=== PATIENT | female | born 1975 | race Caucasian/White ===

== ENCOUNTER 2019-06-17 13:27 | Emergency (ER) | payer BC ==
[2019-06-17 13:40] VITALS: BP 155/85
--- NOTE | 2019-06-17 13:57 | UC ---
General HPI - HPI Summary HPI Summary: patient has run out of medications to treat adhd----has appointment at [facility] to get meds filled - History of Current Complaint Chief Complaint: UCMedRefill Stated Complaint: MED REFILL Time Seen by Provider: 06/17/19 13:29 Hx Obtained From: Patient Hx Last Menstrual Period: 2 weeks ago Onset/Duration: Gradual Onset Timing: Constant Pain Intensity: 0 - Allergy/Home Medications Allergies/Adverse Reactions: Allergies Allergy/AdvReac Type Severity Reaction Status Date / Time No Known Allergies Allergy Verified 06/17/19 13:40 Home Medications: Home Medications Bupropion XL* [Wellbutrin XL *] 300 mg PO DAILY 06/17/19 [History Confirmed 05/26] Desvenlafaxine(NF) [Pristiq(NF)] 200 mg PO DAILY 06/17/19 [History Confirmed 05/26] Dextroamphetamine/Amphetamine [Adderall 20 mg Tablet] 1 tab PO DAILY MDD 1 06/17 [History Confirmed 06/17/19] Lisdexamfetamine (NF) [Vyvanse (NF)] 70 mg PO DAILY MDD 1 06/17/19 [History Confirmed 06/17/19] Montelukast Sodium TAB* [Singulair 10 MG TAB*] 10 mg PO DAILY 06/17/19 [History Confirmed 06/17/19] PMH/Surg Hx/FS Hx/Imm Hx Previously Healthy: Yes Respiratory History: Asthma Psychological History: Other Other Psychological History: ADHD - Surgical History Surgical History: Yes Surgery Procedure, Year, and Place: ankle - left - rods and screws - Family History Known Family History: Positive: None - Social History Occupation: Employed Full-time Lives: Alone Alcohol Use: Occasionally Substance Use Type: None Smoking Status (MU): Heavy Every Day Tobacco Smoker Type: Cigarettes Amount Used/How Often: 1/2 PPD Review of Systems All Other Systems Reviewed And Are Negative: Yes Constitutional: Positive: Negative Skin: Positive: Negative Eyes: Positive: Negative ENT: Positive: Negative Respiratory: Positive: Negative Cardiovascular: Positive: Negative Gastrointestinal: Positive: Negative Genitourinary: Positive: Negative Motor: Positive: Negative Neurovascular: Positive: Negative Musculoskeletal: Positive: Negative Neurological: Positive: Negative Psychological: Positive: Negative Is Patient Immunocompromised?: No Physical Exam Triage Information Reviewed: Yes Appearance: Well-Appearing, No Pain Distress, Well-Nourished Vital Signs: Initial Vital Signs Temp 97 F 06/17/19 13:35 Pulse 88 06/17/19 13:35 Resp 16 06/17/19 13:35 BP 155/85 06/17/19 13:35 Pulse Ox 99 06/17/19 13:35 Vital Signs Reviewed: Yes Eye Exam: Normal Eyes: Positive: Conjunctiva Clear ENT Exam: Normal ENT: Positive: Normal ENT inspection, Hearing grossly normal. Negative: Trismus , Muffled voice, Hoarse voice Neck exam: Normal Neck: Positive: Supple, Nontender Respiratory Exam: Normal Respiratory: Positive: Chest non-tender, No respiratory distress, No accessory muscle use Cardiovascular Exam: Normal Cardiovascular: Positive: RRR, Pulses Normal, Brisk Capillary Refill Musculoskeletal Exam: Normal Musculoskeletal: Positive: Strength Intact, ROM Intact, No Edema Neurological Exam: Normal Neurological: Positive: Alert, Muscle Tone Normal Psychological Exam: Normal Skin Exam: Normal Course/Dx - Course Course Of Treatment: will refill medications for 1 month while she awaits appointment at [facility]--follow blood pressure with pcp - Diagnoses Provider Diagnosis: Hypertension, Medication refill Discharge ED - Sign-Out/Discharge Documenting (check all that apply): Patient Departure All imaging exams completed and their final reports reviewed: No - Discharge Plan Condition: Stable Disposition: HOME Prescriptions: Dextroamphetamine/Amphetamine [Adderall 20 mg Tablet] 1 tab PO DAILY #30 tab MDD 1 Lisdexamfetamine (NF) [Vyvanse (NF)] 70 mg PO DAILY 30 Days #1 cap MDD 1 Patient Education Materials: ADHD in Adults (ED), Hypertension (ED) Referrals: Bea REID,Salvador Jolly [Primary Care Provider] - 2 Weeks - Billing Disposition and Condition Condition: STABLE Disposition: Home
== END 2019-06-17 14:00 | disposition home or self-care (01) ==
LOC: UCEAST 13:27
DX: Z76.0 Encounter for issue of repeat prescription (principal); I10 Essential (primary) hypertension; J45.909 Unspecified asthma, uncomplicated; F90.9 Attention-deficit hyperactivity disorder, unspecified type; F17.210 Nicotine dependence, cigarettes, uncomplicated; Z79.899 Other long term (current) drug therapy
CPT/HCPCS: 99202; G0463

== ENCOUNTER 2019-07-15 15:00 | Emergency (ER) | payer BC ==
[2019-07-15 15:15] VITALS: BP 140/81
--- NOTE | 2019-07-15 15:46 | UC ---
[facility] Dental HPI - HPI Summary HPI Summary: patient continues to be working through he process of getting established at [facility].she is no longer able to get medications filled from pcp due to missing appointment. She also c/o swelling right lower jaw and drainage from left eye - History of Current Complaint Chief Complaint: UCDentalProblem Stated Complaint: TOOTHACE, MED REFILL Time Seen by Provider: 07/15/19 15:09 Hx Obtained From: Patient Hx Last Menstrual Period: a week ago ?: No Onset/Duration: Sudden Onset Pain Intensity: 0 Pain Scale Used: 0-10 Numeric Aggravating Factor(s): Nothing Alleviating Factor(s): Nothing Related History: Previous Dental Care on Same Tooth, Swelling - Allergies/Home Medications Allergies/Adverse Reactions: Allergies Allergy/AdvReac Type Severity Reaction Status Date / Time No Known Allergies Allergy Verified 07/15/19 15:15 Home Medications: Home Medications Ibuprofen 800 mg PO ONCE PRN 07/15/19 [History Confirmed 07/15/19] PMH/Surg Hx/FS Hx/Imm Hx Previously Healthy: No Respiratory History: Asthma Other Neurological History: ADHD Psychological History: Anxiety, Depression - Surgical History Surgical History: Yes Surgery Procedure, Year, and Place: ankle - left - rods and screws - Family History Known Family History: Positive: None - Social History Occupation: Employed Full-time Lives: Alone Alcohol Use: Occasionally Substance Use Type: None Smoking Status (MU): Heavy Every Day Tobacco Smoker Type: Cigarettes Amount Used/How Often: 1/2 PPD Household Exposure Type: Cigarettes Review of Systems All Other Systems Reviewed And Are Negative: Yes Constitutional: Positive: Negative Skin: Positive: Negative Eyes: Positive: Drainage - left, Eye Redness - left ENT: Positive: Dental Pain - right lower Respiratory: Positive: Negative Cardiovascular: Positive: Negative Gastrointestinal: Positive: Negative Genitourinary: Positive: Negative Motor: Positive: Negative Neurovascular: Positive: Negative Musculoskeletal: Positive: Negative Neurological: Positive: Negative Psychological: Positive: Negative Is Patient Immunocompromised?: No Physical Exam Triage Information Reviewed: Yes Appearance: Well-Appearing, No Pain Distress, Well-Nourished Vital Signs: Initial Vital Signs Temp 97.7 F 07/15/19 15:12 Pulse 96 07/15/19 15:12 Resp 18 07/15/19 15:12 BP 140/81 07/15/19 15:12 Pulse Ox 99 07/15/19 15:12 Vital Signs Reviewed: Yes Eye Exam: Normal Eyes: Positive: Conjunctiva Clear - right, Discharge - lrft ENT Exam: Normal ENT: Positive: Normal ENT inspection, Hearing grossly normal, Nasal congestion, TMs normal, Dental tenderness - right lower jaw, Sinus tenderness, Uvula midline. Negative: Trismus, Muffled voice, Hoarse voice Dental Exam: Other - missing teeth Dental: Positive: Gross Decay/Caries @, Abscess @ - right lower jaw Neck exam: Normal Neck: Positive: Supple, Nontender, No Lymphadenopathy Respiratory Exam: Normal Respiratory: Positive: Chest non-tender, No respiratory distress, No accessory muscle use Cardiovascular Exam: Normal Cardiovascular: Positive: RRR, Brisk Capillary Refill Musculoskeletal Exam: Normal Musculoskeletal: Positive: Strength Intact, ROM Intact, No Edema Neurological Exam: Normal Neurological: Positive: Alert, Muscle Tone Normal Psychological Exam: Normal Skin Exam: Normal Dental Complaint Course/Dx - Course Course Of Treatment: polytrim, amoxicilln, refill meds for 2 weeks---[facility] - Differential Dx/Diagnosis Provider Diagnosis: Acute bacterial conjunctivitis of left eye, Dental infection, Medication refill Discharge ED - Sign-Out/Discharge Documenting (check all that apply): Patient Departure All imaging exams completed and their final reports reviewed: No Studies - Discharge Plan Condition: Stable Disposition: HOME Prescriptions: Amoxicillin PO (*) [Amoxicillin 500 MG CAP*] 500 mg PO TID #30 cap Dextroamphetamine/Amphetamine [Adderall 20 mg Tablet] 1 tab PO DAILY 14 Days # 14 tab MDD 1 Lisdexamfetamine (NF) [Vyvanse (NF)] 70 mg PO DAILY 14 Days #14 cap MDD 1 Polymyx/Trimethoprim OPTH* [Polytrim OPHTH*] 1 drop LEFT EYE QID #1 btl Patient Education Materials: Toothache (ED), Medicine Refill (ED) Referrals: Bea REID,Salvador Jolly [Primary Care Provider] - 1 Week - Billing Disposition and Condition Condition: STABLE Disposition: Home
== END 2019-07-15 16:05 | disposition home or self-care (01) ==
LOC: UCEAST 15:00
DX: K04.7 Periapical abscess without sinus (principal); H10.32 Unspecified acute conjunctivitis, left eye; Z76.0 Encounter for issue of repeat prescription; J45.909 Unspecified asthma, uncomplicated; F90.9 Attention-deficit hyperactivity disorder, unspecified type; B96.89 Other specified bacterial agents as the cause of diseases classified elsewhere; F17.210 Nicotine dependence, cigarettes, uncomplicated
CPT/HCPCS: 99212; G0463